=== PATIENT | female | born 1995 | race Caucasian/White ===

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

== ENCOUNTER 2018-10-28 20:53 | Emergency (ER) | payer BC, OTHER ==
[2018-10-28 21:38] VITALS: BP 131/89
--- NOTE | 2018-10-28 21:59 | PHYS DOC ---
Past History Past Medical History: No Pertinent History Past Surgical History: Other Additional Past Surgical Histo: Left knee- ACL repair Smoking: Non-smoker Alcohol Use: Rarely Drug Use: None Adult General Chief Complaint Chief Complaint: KNEE INJURY HPI HPI 23 y/o female presents with left knee pain which started tonight after patient "landed on it funny" while playing volleyball. Denies swelling. Reports pain with ambulation and movement. Denies deformity. Denies . Reports concern as patient with history of ACL repair. Review of Systems Review of Systems Constitutional: Denies fever or chills Eyes: Denies change in visual acuity, redness, or eye pain HENT: Denies nasal congestion or sore throat Respiratory: Denies cough or shortness of breath Cardiovascular: Denies chest pain or palpitations GI: Denies abdominal pain, nausea, vomiting, or diarrhea : Denies dysuria or hematuria Musculoskeletal: Denies back pain; reports left knee pain Integument: Denies rash or skin lesions Neurologic: Denies headache, focal weakness or sensory changes Complete systems were reviewed and found to be within normal limits, except as documented in this note. Allergies Allergies Allergies Coded Allergies Type Severity Reaction Last Updated Verified No Known Drug Allergies 10/28/18 No Physical Exam Physical Exam Constitutional: Well developed, well nourished, no acute distress, non-toxic appearance HENT: Normocephalic, atraumatic, oropharynx moist, nose normal Eyes: Conjunctiva normal, no discharge Neck: Normal range of motion, no tenderness, supple, no meningeal signs Cardiovascular: Heart rate normal and regular rhythm Lungs & Thorax: Bilateral breath sounds clear to auscultation, no respiratory distress Skin: Warm, dry, no erythema, no rash Extremities: Left knee: anterior drawer negative, no obvious deformity, tenderness on palpation and ROM. Neurologic: Alert and oriented X 3, no focal deficits noted Psychologic: Affect normal, judgement normal Current Patient Data Vital Signs Vital Signs Date Time Temp Pulse Resp B/P (MAP) Pulse Ox O2 Delivery O2 Flow Rate FiO2 10/28/18 21:38 68 16 99 Room Air EKG EKG [] Radiology/Procedures Radiology/Procedures PROCEDURE: KNEE LEFT 3V EXAM: 3 views left knee DATE: 10/28/2018 9:41 PM INDICATION: Left knee pain, injury. History of ACL surgery. COMPARISON: No Prior FINDINGS: Changes of ACL reconstruction are seen with tibial and femoral tunnels. No evidence of acute fracture or dislocation. No left knee joint effusion. Joint spaces are preserved without significant degenerative/proliferative change. IMPRESSION: No evidence of acute fracture or dislocation. Electronically signed by: Danny Velez MD (10/29/2018 8:07 AM) [facility] [place] Course & Med Decision Making Course & Med Decision Making Pertinent Imaging studies reviewed. (See chart for details) Patient presents with left knee injury. Pain addressed. ICE applied. XR without signs of fracture. Hx of ACL repair. Knee appears stable More likely a sprain. LARISA applied. Crutches provided. Patient stable for discharge home with outpatient follow-up with PCP/Orthopedics. Discussed findings and plan with patient, who acknowledges understanding and agreement. Dragon Disclaimer Dragon Disclaimer This electronic medical record was generated, in whole or in part, using a voice recognition dictation system. Departure Departure: Impression: Primary Impression: Left knee sprain Disposition: 01 HOME, SELF-CARE Condition: STABLE Referrals: PCP,REI (PCP) AFSHIN MORALES MD Patient Instructions: Crutch Use, [id number], Knee Sprain, [id number], Knee Wraps (Elastic Bandage) and RICE Additional Instructions: Use over the counter Tylenol and Ibuprofen for pain or discomfort. Splinting Splinting : Location: Left knee Pre-Made Type: LARISA bandage Pre-Proc Neuro Vasc Exam: normal Post-Proc Neuro Vasc Exam: normal, unchanged from pre-exam Problem Qualifiers Primary Impression: Left knee sprain Encounter type: initial encounter Involved ligament of knee: unspecified ligament Qualified Codes: S83.92XA - Sprain of unspecified site of left knee, initial encounter VINCENT HERNANDEZ DO Oct 28, 2018 21:58
[2018-10-28] MEDS ORDERED: IBUPROFEN 600 MG TABLET. PO ONE ×2 (22:10→22:15)
--- NOTE | 2018-10-29 08:10 | RAD ---
EXAM: 3 views left knee DATE: 10/28/2018 9:41 PM INDICATION: Left knee pain, injury. History of ACL surgery. COMPARISON: No Prior FINDINGS: Changes of ACL reconstruction are seen with tibial and femoral tunnels. No evidence of acute fracture or dislocation. No left knee joint effusion. Joint spaces are preserved without significant degenerative/proliferative change. IMPRESSION: No evidence of acute fracture or dislocation. Electronically signed by: Danny Velez MD (10/29/2018 8:07 AM) [facility]
== END 2018-10-28 22:13 | disposition home or self-care (01) ==
LOC: ER 20:53
DX: S83.92XA Sprain of unspecified site of left knee, initial encounter (principal); X58.XXXA Exposure to other specified factors, initial encounter; Y93.68 Activity, volleyball (beach) (court); Y92.89 Other specified places as the place of occurrence of the external cause; Y99.8 Other external cause status
CPT/HCPCS: 73562; 99284